=== PATIENT | male | born 1940 | race Caucasian/White ===

== ENCOUNTER 2017-08-17 22:10 | Observation (INO) | payer OTHER ==
[~2017-08-17] VITALS: Ht 180.3 cm; Wt 96.4 kg
[~2017-08-17 22:10] MED LIST: ASPI325 PO; ATOR10; FISH OIL 1,0001 EAC1 PO; GABA300; INS70/30I SC; INVOKANA300 MG PO; LISI5 PO; MULVITMIND PO; SOMA350 MG PO
[2017-08-17 22:50] LABS: BASOPHILS ABSOLUTE AUTO 0.01 K/mm3 (0.00-0.23); BASOPHILS PERCENT AUTO 0 % (0-2); EOSINOPHILS ABSOLUTE AUTO 0.03 K/mm3 (0.00-0.68); EOSINOPHILS PERCENT AUTO 0 % (0-6); Hematocrit 45.9 % (37.0-53.0); IMMATURE GRAN ABSOLUTE AUTO 0.04 K/mm3 (0.00-0.10); IMMATURE GRAN PERCENT AUTO 1 % (0-1); LYMPHOCYTES ABSOLUTE AUTO 1.12 K/mm3 (0.84-5.20); LYMPHOCYTES PERCENT AUTO 15 % (21-46); MONOCYTES ABSOLUTE AUTO 0.52 K/mm3 (0.16-1.47); MONOCYTES PERCENT AUTO 7 % (4-13); Mean Corpuscular HGB 29.9 pg (26.0-34.0); Mean Corpuscular HGB Conc 32.7 g/dL (31.5-36.5); Mean Corpuscular Volume 92 fL (80-100); Mean Platelet Volume 10.3 fL (9.1-12.4); NEUTROPHILS ABSOLUTE AUTO 5.83 K/mm3 (1.96-9.15); NEUTROPHILS PERCENT AUTO 77 % (41-73); Platelet Count 240 K/mm3 (150-400); RDW Coefficient Variation 13.4 % (11.7-14.2); RDW Standard Deviation 45.1 fL (35.1-46.3); Red Blood Cell Count 5.01 M/mm3 (4.30-5.90); White Blood Cell Count 7.55 K/mm3 (4.00-11.30)
[2017-08-17 23:08] LABS: Alanine Aminotransfer (ALT/SGP 24 U/L (12-78); Albumin, Blood 3.6 g/dL (3.4-5.0); Albumin/Globulin Ratio 0.9 (0.8-1.8); Alk Phos 90 U/L (50-136); Anion Gap 6 mmol/L (6-16); Aspartate Aminotrans (AST/SGOT 9 U/L (12-37); Bilirubin, Total 0.5 mg/dL (0.1-1.0); Blood Urea Nitrogen 15 mg/dL (8-24); Bun/Creatinine Ratio 15.9 (12.0-20.0); CO2, Blood 28 mmol/L (21-32); Calcium, Blood 8.3 mg/dL (8.5-10.1); Chloride, Blood 105 mmol/L (98-108); Creatinine, Blood 0.94 mg/dL (0.60-1.20); Globulin, Blood 4.2 g/dL (2.2-4.0); Glomerular Filtration Rate >60 (60-); Glucose, Blood 348 mg/dL (70-99); Potassium, Blood 4.1 mmol/L (3.5-5.5); Sodium, Blood 139 mmol/L (136-145); Total Protein, Blood 7.8 g/dL (6.4-8.2)
[2017-08-18] MEDS ORDERED: [UNRECOGNIZED DRUG - CODE] PO (09:37)
[2017-08-18 10:28] LABS: International Normalized Ratio 1.06
[2017-08-18 14:18] LABS: Source, Urine Voided
[2017-08-18 14:20] LABS: Bilirubin, Urine Neg (Neg); Blood, Urine 1+ (Neg); Glucose Qualitative, Urine 4+ (Neg); Ketones, Urine 3+ (Neg); Leukocyte Esterase, Urine Neg (Neg); Nitrite, Urine Neg (Neg); Protein, Urine 2+ (Neg); Specific Gravity, Urine 1.015 (1.003-1.022); Urobilinogen, Urine NORM (Normal)
[2017-08-18 14:31] LABS: Appearance, Urine Clear (Clear); Color, Urine Yellow (P-Yellow)
[2017-08-18 14:32] LABS: Bacteria Few /hpf; Squamous Epithelial Cells Few /hpf (Few); White Blood Cells, Urine 0-2 /hpf (0-5)
[2017-08-18] MEDS ORDERED: TOUJEO SOL300 UNIT/1 SC (18:19)
[2017-08-19 04:39] LABS: BASOPHILS ABSOLUTE AUTO 0.03 K/mm3 (0.00-0.23); BASOPHILS PERCENT AUTO 0 % (0-2); EOSINOPHILS ABSOLUTE AUTO 0.02 K/mm3 (0.00-0.68); EOSINOPHILS PERCENT AUTO 0 % (0-6); Hematocrit 46.1 % (37.0-53.0); Hemoglobin 15.4 g/dL (13.5-17.5); IMMATURE GRAN ABSOLUTE AUTO 0.03 K/mm3 (0.00-0.10); IMMATURE GRAN PERCENT AUTO 0 % (0-1); LYMPHOCYTES ABSOLUTE AUTO 1.44 K/mm3 (0.84-5.20); LYMPHOCYTES PERCENT AUTO 16 % (21-46); MONOCYTES ABSOLUTE AUTO 0.55 K/mm3 (0.16-1.47); MONOCYTES PERCENT AUTO 6 % (4-13); Mean Corpuscular HGB 30.1 pg (26.0-34.0); Mean Corpuscular HGB Conc 33.4 g/dL (31.5-36.5); Mean Corpuscular Volume 90 fL (80-100); Mean Platelet Volume 10.1 fL (9.1-12.4); NEUTROPHILS ABSOLUTE AUTO 6.88 K/mm3 (1.96-9.15); NEUTROPHILS PERCENT AUTO 77 % (41-73); Platelet Count 252 K/mm3 (150-400); RDW Coefficient Variation 13.4 % (11.7-14.2); Red Blood Cell Count 5.11 M/mm3 (4.30-5.90); White Blood Cell Count 8.95 K/mm3 (4.00-11.30)
[2017-08-19 04:59] LABS: Anion Gap 8 mmol/L (6-16); Blood Urea Nitrogen 18 mg/dL (8-24); Bun/Creatinine Ratio 26.9 (12.0-20.0); CO2, Blood 27 mmol/L (21-32); Calcium, Blood 8.2 mg/dL (8.5-10.1); Chloride, Blood 107 mmol/L (98-108); Creatinine, Blood 0.67 mg/dL (0.60-1.20); Glomerular Filtration Rate >60 (60-); Glucose, Blood 159 mg/dL (70-99); Potassium, Blood 3.3 mmol/L (3.5-5.5); Sodium, Blood 142 mmol/L (136-145)
[2017-08-21] MEDS ORDERED: ATOR40TA PO (13:54)
[2017-08-21] MEDS ORDERED: Omeprazole20 M1 PO (13:56)
[2017-08-21] MEDS ORDERED: CHLO25A PO (14:00)
[2017-08-21] MEDS ORDERED: SUCR1 PO (14:01)
== END 2017-08-21 14:35 | disposition home or self-care (01) ==
LOC: ER 22:10 → MEDS 22:11
PROVIDERS: Emergency Medicine; Family Medicine; Internal Medicine Gastroenterology
PROC: 0DJ08ZZ Inspection of Upper Intestinal Tract, Via Natural or Artificial Opening Endoscopic (ICD-10-PCS; principal; 2017-08-20 09:00)
PROC: 0DJD8ZZ Inspection of Lower Intestinal Tract, Via Natural or Artificial Opening Endoscopic (ICD-10-PCS; principal; 2017-08-20 09:00)
DX: K22.10 Ulcer of esophagus without bleeding (principal); K22.2 Esophageal obstruction; K57.30 Diverticulosis of large intestine without perforation or abscess without bleeding; K64.8 Other hemorrhoids; K44.9 Diaphragmatic hernia without obstruction or gangrene; E11.9 Type 2 diabetes mellitus without complications; I10 Essential (primary) hypertension; M54.9 Dorsalgia, unspecified; G89.29 Other chronic pain; E78.5 Hyperlipidemia, unspecified; M51.36 Other intervertebral disc degeneration, lumbar region; K21.9 Gastro-esophageal reflux disease without esophagitis; H26.9 Unspecified cataract; E87.6 Hypokalemia; Z79.4 Long term (current) use of insulin; Z79.82 Long term (current) use of aspirin; Z79.899 Other long term (current) drug therapy; Z90.49 Acquired absence of other specified parts of digestive tract; Z87.891 Personal history of nicotine dependence; Z90.89 Acquired absence of other organs; Z98.890 Other specified postprocedural states; Z98.52 Vasectomy status
CPT/HCPCS: 36415; 74177; 80048; 80053; 81001; 82378; 82947; 83690; 85025; 85610; 85730; 93005; 93010; 96365; 96375; 99285; C9113; G0378; J0360; J1170; J1610; J1815; J1885; J2405; J2550; J3230; J7042; J7120; Q9967

== ENCOUNTER → 2023-07-26 | Outpatient (CLI) | payer OTHER ==
[~2023-07-26] MED LIST changes: +ATOR40TA PO; +CHLO25A PO; +Omeprazole20 M1 PO; +SUCR1 PO; +TOUJEO SOL300 UNIT/1 SC; +[UNRECOGNIZED DRUG - CODE] PO
== END | disposition home or self-care (01) ==
LOC: LAB 15:18 → LAB SHORT 15:18
DX: L02.612 Cutaneous abscess of left foot (principal)
CPT/HCPCS: 87070; 87077; 87186; 87205

== ENCOUNTER 2023-09-12 16:26 | Inpatient (IN) | payer OTHER ==
[~2023-09-12] VITALS: Ht 177.8 cm; Wt 92.0 kg
[2023-09-12 18:32] LABS: BASOPHILS ABSOLUTE AUTO 0.03 K/mm3 (0.00-0.23); BASOPHILS PERCENT AUTO 0 % (0-2); EOSINOPHILS ABSOLUTE AUTO 0.02 K/mm3 (0.00-0.68); EOSINOPHILS PERCENT AUTO 0 % (0-6); Hematocrit 43.7 % (37.0-53.0); Hemoglobin 15.3 g/dL (13.5-17.5); IMMATURE GRAN ABSOLUTE AUTO 0.07 K/mm3 (0.00-0.10); IMMATURE GRAN PERCENT AUTO 1 % (0-1); LYMPHOCYTES ABSOLUTE AUTO 1.01 K/mm3 (0.84-5.20); LYMPHOCYTES PERCENT AUTO 11 % (21-46); MONOCYTES ABSOLUTE AUTO 0.53 K/mm3 (0.16-1.47); MONOCYTES PERCENT AUTO 6 % (4-13); Mean Corpuscular HGB 31.9 pg (26.0-34.0); Mean Corpuscular Volume 91 fL (80-100); NEUTROPHILS ABSOLUTE AUTO 7.18 K/mm3 (1.96-9.15); NEUTROPHILS PERCENT AUTO 81 % (41-73); Platelet Count 296 K/mm3 (150-400); RDW Standard Deviation 43.5 fL (35.1-46.3); White Blood Cell Count 8.84 K/mm3 (4.00-11.30)
[2023-09-12 18:38] LABS: Albumin/Globulin Ratio 0.7 (0.8-1.8); Bilirubin, Total 0.6 mg/dL (0.1-1.0); Bun/Creatinine Ratio 34.1 (12.0-20.0); Calcium, Blood 8.4 mg/dL (8.5-10.1); Creatinine, Blood 0.91 mg/dL (0.60-1.20); Globulin, Blood 4.2 g/dL (2.2-4.0); Total Protein, Blood 7.2 g/dL (6.4-8.2)
[2023-09-12] MEDS ORDERED: NS IV ONE (18:55)
[2023-09-12] MEDS ORDERED: CHLORPROMAZINE HCL IV ONE (18:55)
[2023-09-12] MEDS ORDERED: Ondansetron HCl 2 MG / ML 2ML Vial IV ONE (18:55)
[2023-09-12] MEDS ORDERED: Pantoprazole Sodium 40 MG Injection IV ONE (19:00)
[2023-09-12] MEDS ORDERED: ONDA4ODT MM (19:12)
[2023-09-12] MEDS ORDERED: Cipro500 MG PO (19:12)
[2023-09-12] MEDS ORDERED: TOUJEO MAX300 UNIT/2 SC (19:13)
[2023-09-12] MEDS ORDERED: JARDIANCE25 MG PO ×2 (19:13→21:31)
[2023-09-12] MEDS ORDERED: DRAMAMINE25 M3 PO (19:13)
[2023-09-12] MEDS ORDERED: LISI20 PO (19:14)
[2023-09-12 19:19] LABS: International Normalized Ratio 1.09; Prothrombin Time Results 11.4 Sec (9.7-11.5)
[2023-09-12] MEDS ORDERED: NS 1,000 ML IV ONE (20:00)
[2023-09-12] MEDS ORDERED: Metoclopramide HCl 5MG / ML 2ML Vial IV PRN (20:00)
[2023-09-12] MEDS ORDERED: Insulin Glargine-Yfgn 100 Unit/mL 3 ML SYR SC SCH (21:00)
[2023-09-12] MEDS ORDERED: NS 1,000 ML IV SCH (21:00)
[2023-09-12] MEDS ORDERED: Ciprofloxacin 500 MG Tab PO SCH (21:00)
[2023-09-12 21:22] VITALS: BP 145/71
[2023-09-12] MEDS ORDERED: ASPI325 PO (21:32)
[2023-09-12 23:54] LABS: Hemoglobin 13.6 g/dL (13.5-17.5)
[2023-09-13] VITALS (9 sets, daily range): BP systolic 105–176; BP diastolic 62–130
[2023-09-13] MEDS ORDERED: Labetalol HCL 5 MG/ML 4ML Injection (Single Dose) IV ONE (04:55)
[2023-09-13] MEDS ORDERED: Labetalol HCL 5 MG/ML 4ML Injection (Single Dose) ONE (04:58)
[2023-09-13 05:31] LABS: Hemoglobin 13.8 g/dL (13.5-17.5)
[2023-09-13 06:09] LABS: Bun/Creatinine Ratio 26.4 (12.0-20.0); Creatinine, Blood 0.87 mg/dL (0.60-1.20); Potassium, Blood 3.2 mmol/L (3.5-5.5)
[2023-09-13] MEDS ORDERED: Metoprolol Tartrate 1 MG/ML 5 ML VIAL IV ONE (06:25)
[2023-09-13] MEDS ORDERED: Dextrose 50% 50 ML Syringe IV ONE (06:30)
[2023-09-13] MEDS ORDERED: Metoprolol Tartrate 1 MG/ML 5 ML VIAL IV PRN (07:50)
--- NOTE | 2023-09-13 07:50 | NUR ---
NEW ADMIT/[employer] SUMMARY PT ADMIT FOR GI BLEED. PT IS A/OX4 WITH FORGETFULNESS; PT POOR HISTORIAN RELATED TO HEALTH HX. PT ON CLEAR LIQUID FOR EGD CONSULT. PHYSICIAN NOTIFIED. 2ND RN SKIN CHECK COMPLETE; EPITHELIALIZED DIABETIC ULCER TO LEFT BIG TOE; SMALL BLISTER TO RIGHT PINKY TOE. CONSENT SIGNED AND PICS IN THE CHART. PT HX OF HIGH BLOOD PRESSURE. PT REPORTS HE STOPPED TAKING BP MEDS BUT COULD NOT RECALL WHY. PT ORIENTED TO ROOM AND CALL LIGHT. PT REPORTING DIZINESS DUE TO VERTIGO. EDUCATED PT ON FALL RISK AND NEED FOR SBA. BED ALARM IN PLACE. PT HAVING EPISODED OF SINUS TACH IN THE 150'S WHE/N GETTING UP. THEN, HR /SUSTAINING IN 130'S. BLOOD PRESSURE ELEVATED; 208/179, 160/130. PHONE CALL TO ON [facility] DR SORIANO. NEW ORDER FOR 10MG IV LABETOLOL. NOTIFIED TECH OF IV PUSH MED; PUSHED MED OVER 2 MINTUES. HR DROPED TO 90-110; BLOOD PRESSURE CAME DOWN TO 144/62. WITHIN AN HOUR HR AND BLOOD PRESSURE BEGIN TO RISE. CALL TO SUPERVISOR [employer]--RCVD REPORT PT IN AFIB. OBTAINED EKG--ABNORMAL SHOWING PT IN AFIB WITH RVR. CONSULTED WITH DR SORIANO IN PERSON AND PROVIDED COPY OF THE EKG. ADVISED TO CONTINUE TO MONITOR, CALL AGAIN OF PT HR SUSTAINS OVER 110, AND ORDER ECHO. PT HR INCREASED AGAIN AND SUSTAINING OVER 110. PB BLOOD SUGAR WAS 65. CALLED DR AGAIN TO REPORT CONCERNS. NEW ORDER FOR 5MG LOPRESSOR AND ONE AMPULE OF D50. BOTH MEDS GIVEN JUST BEFORE SHIFT CHANGE. FULL BEDSIDE SHIFT REPORT GIVEN TO ONCOMING NURSE.
[2023-09-13] MEDS ORDERED: Potassium Chl 20MEQ/Water100ML 100 ML IV STA (07:53)
--- NOTE | 2023-09-13 08:11 | NUR ---
PHYSICIAN CONTACT/AFIB 120-130. PROPERTY MANAGEMENT BOOKKEEPER REPORTED TODAY THAT PT IS SUSTAINGING IN THE 120-130S AFIB SINCE 0700 TODAY. PT REPORTS THAT HE FEELS HYPOGLYCEMIC, BLOOD SUGAR CHECKED- 173. AM BP 109/68. THIS IS A DROP FROM OVERNIGHT. DR. PATRICK NOTIFIED OF ALL THIS. PRN IV LOPRESSOR ORDERED WITH PERAMETERS FOR BP SINCE PT IS SYMPTOMATIC AFTER WALKING TO THE BATHROOM AND BACK. DR. PATRICK TO DC LANTUS FOR NOW AND ONLY FOLLOW SLIDING SCALE.
[2023-09-13] MEDS ORDERED: Lisinopril 10 MG Tab PO SCH (09:00)
[2023-09-13] MEDS ORDERED: Lisinopril 20 MG Tab PO SCH (09:00)
[2023-09-13] MEDS ORDERED: Pantoprazole Sodium 40 MG Injection IV SCH (09:00)
--- NOTE | 2023-09-13 09:54 | NUR ---
PHYSICIAN CONTACT/ CONVERT TO AFLUTTER. TELLER SUPERVISOR CALLED TO REPORT THAT PATIENT HAD CONVERTED TO AFLUTTER AND IS SUSTAINING AT 135. DR. PATRICK NOTIFIED. IV LOPRESSOR GIVEN WITH DR. HR DID COME DOWN TO 90-120S PER TELLER SUPERVISOR. DR. PATRICK WANTING TO TRANSFER THE PATIENT TO PCU FOR FURTHER CONTROL OF HR. OR STAFF NOTIFIED OF EVENTS AND EGD LIKELY TO BE POSTPONED FOR NOW.
[2023-09-13] MEDS ORDERED: Metoprolol Tartrate 25 MG Tab PO SCH (11:00)
[2023-09-13 13:10] LABS: Source, Urine Clean Catch
[2023-09-13 13:22] LABS: Bilirubin, Urine Neg (Neg); Blood, Urine 3+ (Neg); Glucose Qualitative, Urine 2+ (Neg); Ketones, Urine 3+ (Neg); Leukocyte Esterase, Urine 3+ (Neg); Nitrite, Urine Neg (Neg); Protein, Urine 2+ (Neg); Urobilinogen, Urine NORM (Normal)
[2023-09-13 13:44] LABS: Albumin, Blood 2.7 g/dL (3.4-5.0); Anion Gap 9 mmol/L (3-11); Blood Urea Nitrogen 21 mg/dL (8-24); Bun/Creatinine Ratio 24.9 (12.0-20.0); CO2, Blood 28 mmol/L (21-32); Calcium, Blood 7.9 mg/dL (8.5-10.1); Chloride, Blood 105 mmol/L (98-108); Creatinine, Blood 0.84 mg/dL (0.60-1.20); Glomerular Filtration Rate 87 (60-); Glucose, Blood 126 mg/dL (70-99); Phosphorus, Blood 1.8 mg/dL (2.5-4.9); Potassium, Blood 3.7 mmol/L (3.5-5.5); Sodium, Blood 138 mmol/L (136-145)
--- NOTE | 2023-09-13 13:45 | NUR ---
transfer: PT TRANSFER TO PCU 19. A+O X4. DENIES PAIN OR NAUSEA AT THIS TIME. HYPO BT'S. LORENZO CLEAR LIQUIDS, ICE WATER GIVEN. URINAL AT BEDSIDE. TELE A FLUTTER 130'S. PT HAS CHRONIC HICCUPS AND VERTIGO. INSTRUCTED TO CALL TO GET OOB WITH ASSIST. HOB ELEVATED. NS INFUSING PER ORDERS, IV PATENT. CALL LIGHT PLACED IN REACH. WILL CONT TO MONITOR AND TREAT.
--- NOTE | 2023-09-13 13:58 | NUR ---
TRANSFER TO PCU PT TRANSFERED TO PCU. REPORT GIVEN TO DEEDEE VEGA RN.
[2023-09-13 14:11] LABS: Appearance, Urine Turbid (Clear); Color, Urine Yellow (P-Yellow)
[2023-09-13 14:12] LABS: White Blood Cells, Urine TNTC /hpf (0-5)
[2023-09-13 14:14] LABS: Bacteria Many /hpf; Squamous Epithelial Cells Not Seen /hpf (Few); Yeast/Fungi Urine Many /hpf
--- NOTE | 2023-09-13 17:58 | NUR ---
PT HAS BEEN STABLE SINCE TRANSFER. PT HR IN THE 140'S AROUND DINNER, PRN METOPROLOL GIVEN. ENDOSCOPY DELAYED. DR DAVALOS ADVANCED DIET AND WILL REATTEMPT WHEN HR CONTROL IS IMPROVED. PT HAS HAD NO NAUSEA. CHRONIC HICCUPS. PT HAD SMALL TARRY STOOL THIS AFTERNOON. DENIES PAIN. CONT IV FLUIDS ORDERED. VOIDING WELL. URINE PENDING. BLOOD SUGAR 97 AT DINNER. AT BEDSIDE. PT CALLS APPROPRIATELY NEEDED.
[2023-09-13] MEDS ORDERED: Insulin Human Lispro 100 Units/ML 3ML Syringe SC SCH ×2 (21:00)
[2023-09-14 04:01] VITALS: BP 132/68
--- NOTE | 2023-09-14 04:54 | NUR ---
SHIFT SUMMARY PT A&O X4. ABLE TO MAKE NEEDS KNOWN. BP STABLE. PT WAS IN AFIB/AFLUTTER FOR MOST OF THIS NOC SHIFT WITH HR 90-110'S. PT CONVERTED BACK TO SR AROUND 0339, HR CURRENTLY 80'S. PT DENIED CHEST PAIN/PRESSURE T/O THIS SHIFT. ON RA WITH SPO2 >92%. BP STABLE. AFEBRILE. PT WITH SOFT BM THAT WAS DARK BROWN IN COLOR. NO TARRY STOOLS. PT DENIES N/V AND ABDOMINAL PAIN. PT AMBULATING TO BATHROOM WITH SBA. NS INFUSING PER EMAR.
[2023-09-14 05:09] LABS: BASOPHILS ABSOLUTE AUTO 0.02 K/mm3 (0.00-0.23); BASOPHILS PERCENT AUTO 0 % (0-2); EOSINOPHILS ABSOLUTE AUTO 0.02 K/mm3 (0.00-0.68); EOSINOPHILS PERCENT AUTO 0 % (0-6); Hematocrit 38.7 % (37.0-53.0); Hemoglobin 13.1 g/dL (13.5-17.5); IMMATURE GRAN ABSOLUTE AUTO 0.09 K/mm3 (0.00-0.10); IMMATURE GRAN PERCENT AUTO 1 % (0-1); LYMPHOCYTES ABSOLUTE AUTO 1.24 K/mm3 (0.84-5.20); LYMPHOCYTES PERCENT AUTO 18 % (21-46); MONOCYTES ABSOLUTE AUTO 0.44 K/mm3 (0.16-1.47); MONOCYTES PERCENT AUTO 6 % (4-13); Mean Corpuscular HGB 31.4 pg (26.0-34.0); Mean Corpuscular HGB Conc 33.9 g/dL (31.5-36.5); Mean Corpuscular Volume 93 fL (80-100); Mean Platelet Volume 10.1 fL (9.1-12.4); NEUTROPHILS ABSOLUTE AUTO 5.06 K/mm3 (1.96-9.15); NEUTROPHILS PERCENT AUTO 74 % (41-73); Platelet Count 286 K/mm3 (150-400); RDW Standard Deviation 44.6 fL (35.1-46.3); Red Blood Cell Count 4.17 M/mm3 (4.30-5.90); White Blood Cell Count 6.87 K/mm3 (4.00-11.30)
[2023-09-14 05:32] LABS: Bun/Creatinine Ratio 20.3 (12.0-20.0); Calcium, Blood 7.7 mg/dL (8.5-10.1); Creatinine, Blood 0.89 mg/dL (0.60-1.20); Magnesium, Blood 2.4 mg/dL (1.6-2.4); Potassium, Blood 4.3 mmol/L (3.5-5.5)
[2023-09-14 07:59] VITALS: BP 157/78
[2023-09-14] MEDS ORDERED: Metoprolol Tartrate 25 MG Tab PO SCH (09:00)
--- NOTE | 2023-09-14 09:42 | NUR ---
Dr. Chaudhary rounded on patient, called Dr. Lind and notified me that the pt is to have water only then NPO at noon. Dr Lind called and clarified that pt is to be NPO at 11am. Pt only has had clear liquids since last night after eating dinner.
--- NOTE | 2023-09-14 09:56 | NUR ---
Ambulatory to the bathroom to void. Standby assistance only needed.
[2023-09-14] MEDS ORDERED: Lactated Ringer's 1,000 ML IV SCH (12:30)
--- NOTE | 2023-09-14 12:45 | NUR ---
INTO [facility]IA [employer]. HISTORY AND ALLERGIES REVIEWED. NPO STATUS SINCE 0800-CLEAR LIQUIDS. ECG SHOWS SR WITH RATE 80'S. LUNGS WITH FINE CRACKLES TO LEFT BASE. PT REPORTS SOB FROM "HICUPS" PT HAS HAD THE HICUPS X 1 WEEK. NO NOTED SOB AT REST. SATS>93% ON RA.
--- NOTE | 2023-09-14 12:45 | NUR ---
#20 PIV TO RIGHT FOREARM C/D/I-FLUSHES WELL.
[2023-09-14 12:49] VITALS: BP 152/86
--- NOTE | 2023-09-14 12:51 | NUR ---
Pt taken down for EGD.
[2023-09-14] MEDS ORDERED: propofoL 40 ML IV ONE (13:05)
--- NOTE | 2023-09-14 13:52 | NUR ---
09/14/23 1352 Jeane Romo History, Chart, Medications and Allergies reviewed before start of procedure.MONITOR INTACT WITH CONTINUOUS PULSE OXIMETRY, CONTINUOUS END TITAL CO2, AND INTERMITTENT BLOOD PRESSURE.3-LEAD EKG REVIEWED WITH PHYSICIAN PRIOR TO START OF PROCEDURE.O2 VIA N/C INTACT THROUGHOUT SEDATION/PROCEDURE.Bite Block Placed.Haydee Mendoza CRNA providing anesthesia-see anesthesia record.
[2023-09-14] MEDS ORDERED: CefTRIAXone Sodium 1,000 MG in NS 100 ML IV SCH (14:00)
--- NOTE | 2023-09-14 14:28 | NUR ---
Pt returned from EGD. Dr Lind here to see the patient, discussing results.
[2023-09-14 14:30] VITALS: BP 133/63
[2023-09-14] MEDS ORDERED: Pantoprazole Sodium 40 MG Tab PO SCH (16:30)
--- NOTE | 2023-09-14 17:50 | NUR ---
Alert, oriented and pleasantly conversant throughout the day. Ambulatory to the bathroom to void, also had brown loose stool, reported by PCT. IV fluids are infusing 100 cc/hour. Urine noted turbid. Also got IVPB Rocephin started today for UTI. Good appetite following EGD, ate well this evening, diabetic diet. He has had no complaints. Pt has remained in sinus rhythm throughout the shift. Vital signs stable.
[2023-09-14 20:10] VITALS: BP 167/73
[2023-09-14 23:25] VITALS: BP 150/73
[2023-09-14] MEDS ORDERED: Melatonin 5 MG Tablet PO PRN (23:30)
[2023-09-15 03:13] VITALS: BP 149/81
[2023-09-15 04:21] LABS: Hematocrit 40.9 % (37.0-53.0); Mean Corpuscular HGB 31.2 pg (26.0-34.0); Mean Corpuscular HGB Conc 34.2 g/dL (31.5-36.5); Mean Corpuscular Volume 91 fL (80-100); Mean Platelet Volume 9.9 fL (9.1-12.4); Platelet Count 323 K/mm3 (150-400); RDW Coefficient Variation 13.1 % (11.7-14.2); RDW Standard Deviation 43.8 fL (35.1-46.3); Red Blood Cell Count 4.49 M/mm3 (4.30-5.90); White Blood Cell Count 9.09 K/mm3 (4.00-11.30)
--- NOTE | 2023-09-15 05:24 | NUR ---
SHIFT SUMMARY NO ACUTE CHANGES OVERNIGHT. PT REPORTING HICCUPS TO BE BOTHERSOME FOR SLEEPING. PROVIDER WITH ORDER FOR MELATONIN. PT REMAINS IN SR. BP STABLE. ON RA WITH SPO2 >92%. NS INFUSING PER EMAR. PT AMBULATING TO BATHROOM WITH SBA. BED IN LOWEST POSITION AND CALL LIGHT WITHIN REACH. THIS RN WILL REPORT TO ONCOMING DAYSHIFT RN.
[2023-09-15 07:58] VITALS: BP 181/87
[2023-09-15 08:06] LABS: Source, Urine Clean Catch
[2023-09-15 08:14] LABS: Appearance, Urine Hazy (Clear); Bilirubin, Urine Neg (Neg); Blood, Urine 2+ (Neg); Color, Urine Yellow (P-Yellow); Glucose Qualitative, Urine 2+ (Neg); Ketones, Urine 2+ (Neg); Leukocyte Esterase, Urine 3+ (Neg); Nitrite, Urine Neg (Neg); Protein, Urine 2+ (Neg); Specific Gravity, Urine 1.015 (1.003-1.022); Urobilinogen, Urine NORM (Normal)
[2023-09-15 08:23] LABS: White Blood Cells, Urine 50-100 /hpf (0-5); Yeast/Fungi Urine Many /hpf
[2023-09-15 08:24] LABS: Red Blood Cells, Urine 0-2 /hpf (0-2)
[2023-09-15 08:25] LABS: Bacteria Mod /hpf; Squamous Epithelial Cells Not Seen /hpf (Few)
--- NOTE | 2023-09-15 08:34 | NUR ---
Dr. Chaudhary here rounding on the patient. Pt ambulatory earlier to the bathroom to void, urine sent for culture.
--- NOTE | 2023-09-15 08:58 | NUR ---
Cardiology consultation called in to heart center. Noted patient is positive on his I&O; IV fluids have been infusing at 100cc/hour. They were turned off at this time. Crackles noted in the lower bases of his lungs, posteriorly.
[2023-09-15] MEDS ORDERED: Metoprolol Succinate 50 MG TABCR PO SCH (09:00)
[2023-09-15] MEDS ORDERED: Empagliflozin 25 MG TAB PO SCH (09:00)
[2023-09-15] MEDS ORDERED: Sacubitril/Valsartan 24 MG-26 MG Tab PO SCH (09:00)
[2023-09-15 11:16] VITALS: BP 169/80
[2023-09-15 14:15] LABS: Bun/Creatinine Ratio 24.2 (12.0-20.0); Calcium, Blood 8.3 mg/dL (8.5-10.1); Creatinine, Blood 0.83 mg/dL (0.60-1.20); Potassium, Blood 4.4 mmol/L (3.5-5.5)
[2023-09-15 14:46] VITALS: BP 159/85
[2023-09-15] MEDS ORDERED: Torsemide 20 MG TAB PO SCH (15:00)
--- NOTE | 2023-09-15 15:44 | NUR ---
walked to bathroom to void. he was given a "brown cow" prune juice for constipation.
[2023-09-15 15:49] VITALS: BP 152/80
[2023-09-15] MEDS ORDERED: ASPI81CH PO (17:42)
[2023-09-15] MEDS ORDERED: METO50ER PO (17:43)
[2023-09-15] MEDS ORDERED: PANT40 PO (17:44)
[2023-09-15] MEDS ORDERED: POTA10T PO (17:45)
[2023-09-15] MEDS ORDERED: SOAANZ20 M1 PO (17:45)
[2023-09-15] MEDS ORDERED: ENTRESTO 24 MG1 EACH PO (17:45)
[2023-09-15] MEDS ORDERED: LEVFLO500 PO (17:46)
[2023-09-15] MEDS ORDERED: HUMALOG KW100 UNIT/1 SC (17:48)
--- NOTE | 2023-09-15 18:29 | NUR ---
Discharge instructions reviewed with the patient and his . He was given medication list, which was reviewed in detail with both of them. Pt taken out in wheelchair to private vehicle driven by his ,
== END 2023-09-15 18:19 | disposition home or self-care (01) | DRG 381 ==
LOC: ER 16:26 → PCU 19:56 → MEDS 19:56 → PCU 09-13 13:32
PROVIDERS: Internal Medicine; Internal Medicine Gastroenterology; Nurse Practitioner Acute Care; Physician Assistant; Student in an Organized Health Care Education/Training Program; ADMIT Internal Medicine
PROC: 0DB68ZX Excision of Stomach, Via Natural or Artificial Opening Endoscopic, Diagnostic (ICD-10-PCS; principal; 2023-09-14 09:00)
DX: K22.11 Ulcer of esophagus with bleeding (principal); E87.1 Hypo-osmolality and hyponatremia; N39.0 Urinary tract infection, site not specified; I48.92 Unspecified atrial flutter; I50.22 Chronic systolic (congestive) heart failure; K21.01 Gastro-esophageal reflux disease with esophagitis, with bleeding; K25.4 Chronic or unspecified gastric ulcer with hemorrhage; K26.4 Chronic or unspecified duodenal ulcer with hemorrhage; E11.9 Type 2 diabetes mellitus without complications; E78.5 Hyperlipidemia, unspecified; I11.0 Hypertensive heart disease with heart failure; K44.9 Diaphragmatic hernia without obstruction or gangrene; K64.8 Other hemorrhoids; E66.3 Overweight; M19.90 Unspecified osteoarthritis, unspecified site; M54.9 Dorsalgia, unspecified; G89.29 Other chronic pain; Z98.52 Vasectomy status; Z90.49 Acquired absence of other specified parts of digestive tract; Z98.890 Other specified postprocedural states; Z87.891 Personal history of nicotine dependence; F10.90 Alcohol use, unspecified, uncomplicated; Z88.8 Allergy status to other drugs, medicaments and biological substances; Z79.82 Long term (current) use of aspirin; Z79.4 Long term (current) use of insulin; Z79.899 Other long term (current) drug therapy; Z79.811 Long term (current) use of aromatase inhibitors; Z87.19 Personal history of other diseases of the digestive system; Z68.28 Body mass index [BMI] 28.0-28.9, adult
CPT/HCPCS: 36415; 80048; 80053; 80069; 81001; 82947; 83690; 83735; 85014; 85018; 85025; 85027; 85610; 85730; 86850; 86900; 86901; 88305; 96361; 96374; 96375; 99285-25; A9270; C8929; C9113; J0696; J1815; J2405; J2704; J3230; J3480; J7030; J7120; Q9957

== ENCOUNTER 2023-11-20 23:26 | Inpatient (IN) | payer OTHER ==
[~2023-11-20] VITALS: Ht 177.8 cm; Wt 93.6 kg
[~2023-11-20 23:26] MED LIST changes: +ASPI81CH PO; +Cipro500 MG PO; +DRAMAMINE25 M3 PO; +ENTRESTO 24 MG1 EACH PO; +HUMALOG KW100 UNIT/1 SC; +JARDIANCE10 MG PO; +JARDIANCE25 MG PO; +LEVFLO500 PO; +LISI20 PO; +METO50ER PO; +ONDA4ODT MM; +PANT40 PO; +POTA10T PO; +SOAANZ20 M1 PO; +TOUJEO MAX300 UNIT/2 SC
[2023-11-20 23:51] LABS: BASOPHILS ABSOLUTE AUTO 0.03 K/mm3 (0.00-0.23); BASOPHILS PERCENT AUTO 1 % (0-2); EOSINOPHILS ABSOLUTE AUTO 0.11 K/mm3 (0.00-0.68); EOSINOPHILS PERCENT AUTO 2 % (0-6); Hematocrit 46.1 % (37.0-53.0); IMMATURE GRAN ABSOLUTE AUTO 0.02 K/mm3 (0.00-0.10); IMMATURE GRAN PERCENT AUTO 0 % (0-1); LYMPHOCYTES ABSOLUTE AUTO 1.09 K/mm3 (0.84-5.20); LYMPHOCYTES PERCENT AUTO 19 % (21-46); MONOCYTES ABSOLUTE AUTO 0.27 K/mm3 (0.16-1.47); MONOCYTES PERCENT AUTO 5 % (4-13); Mean Corpuscular HGB 31.4 pg (26.0-34.0); Mean Corpuscular HGB Conc 32.5 g/dL (31.5-36.5); Mean Corpuscular Volume 96 fL (80-100); Mean Platelet Volume 10.2 fL (9.1-12.4); NEUTROPHILS ABSOLUTE AUTO 4.33 K/mm3 (1.96-9.15); NEUTROPHILS PERCENT AUTO 74 % (41-73); Platelet Count 220 K/mm3 (150-400); RDW Coefficient Variation 14.2 % (11.7-14.2); RDW Standard Deviation 50.4 fL (35.1-46.3); Red Blood Cell Count 4.78 M/mm3 (4.30-5.90); White Blood Cell Count 5.85 K/mm3 (4.00-11.30)
[2023-11-21] VITALS (18 sets, daily range): BP systolic 99–155; BP diastolic 58–105
[2023-11-21 00:14] LABS: Albumin, Blood 3.6 g/dL (3.4-5.0); Albumin/Globulin Ratio 0.9 (0.8-1.8); Bilirubin, Total 0.4 mg/dL (0.1-1.0); Bun/Creatinine Ratio 21.2 (12.0-20.0); Creatinine, Blood 0.99 mg/dL (0.60-1.20); Globulin, Blood 4.2 g/dL (2.2-4.0); Magnesium, Blood 2.1 mg/dL (1.6-2.4); Potassium, Blood 5.1 mmol/L (3.5-5.5); Total Protein, Blood 7.8 g/dL (6.4-8.2)
[2023-11-21] MEDS ORDERED: Ipratropium/Albuterol SulF 2.5-0.5MG/3 ML Amp INH ONE (00:15)
[2023-11-21] MEDS ORDERED: Aspirin 325 MG Tab PO ONE (00:40)
[2023-11-21] MEDS ORDERED: Insulin Regular 100 Unit/ML 1ML Dose IV ONE (00:45)
[2023-11-21] MEDS ORDERED: Furosemide 10 MG/ML 10ML Vial IV ONE (00:45)
[2023-11-21] MEDS ORDERED: Acetaminophen 325 MG TABLET PO PRN (02:10)
--- NOTE | 2023-11-21 03:42 | NUR ---
EOS/ASSUMPTION: PATIENT ALERT AND ORIENTED X 4, POOR HISTORIAN, WHICH HAS BEEN A LARGE ISSURE, MEDICATION RECONCILLIATION IS INCOMPLETE DUE TO THIS. PATIETN HIMSELF IS UNSURE OF WHAT HE IS TAKING. DENIES CHEST PAIN PRESSURE OR INCREASING SOB. NOTHING INFUSING. GLASSES. NEUROPATHY. SKIN INTACT, DRY. SPO2 98% ON 3.5NC, ELEVATED BLOOD PRESSURE IMPROVED WITH REST. DIURESING WELL, NO MAJOR CONCERNS. WILL CONTINUE TO MONITOR.
[2023-11-21 03:48] LABS: BASOPHILS ABSOLUTE AUTO 0.03 K/mm3 (0.00-0.23); BASOPHILS PERCENT AUTO 0 % (0-2); EOSINOPHILS ABSOLUTE AUTO 0.01 K/mm3 (0.00-0.68); EOSINOPHILS PERCENT AUTO 0 % (0-6); Hemoglobin 15.4 g/dL (13.5-17.5); IMMATURE GRAN ABSOLUTE AUTO 0.03 K/mm3 (0.00-0.10); IMMATURE GRAN PERCENT AUTO 0 % (0-1); LYMPHOCYTES PERCENT AUTO 13 % (21-46); MONOCYTES ABSOLUTE AUTO 0.32 K/mm3 (0.16-1.47); MONOCYTES PERCENT AUTO 5 % (4-13); Mean Corpuscular HGB 31.7 pg (26.0-34.0); Mean Corpuscular HGB Conc 32.8 g/dL (31.5-36.5); Mean Corpuscular Volume 97 fL (80-100); Mean Platelet Volume 10.5 fL (9.1-12.4); NEUTROPHILS ABSOLUTE AUTO 5.44 K/mm3 (1.96-9.15); NEUTROPHILS PERCENT AUTO 81 % (41-73); Platelet Count 237 K/mm3 (150-400); RDW Coefficient Variation 14.3 % (11.7-14.2); RDW Standard Deviation 50.4 fL (35.1-46.3); Red Blood Cell Count 4.86 M/mm3 (4.30-5.90); White Blood Cell Count 6.73 K/mm3 (4.00-11.30)
[2023-11-21 04:22] LABS: Albumin, Blood 3.9 g/dL (3.4-5.0); Albumin/Globulin Ratio 0.9 (0.8-1.8); Bilirubin, Total 0.4 mg/dL (0.1-1.0); Bun/Creatinine Ratio 20.2 (12.0-20.0); Calcium, Blood 9.3 mg/dL (8.5-10.1); Creatinine, Blood 1.09 mg/dL (0.60-1.20); Globulin, Blood 4.2 g/dL (2.2-4.0); Magnesium, Blood 2.2 mg/dL (1.6-2.4); Potassium, Blood 4.9 mmol/L (3.5-5.5); Total Protein, Blood 8.1 g/dL (6.4-8.2)
[2023-11-21] MEDS ORDERED: Nitroglycerin 0.4 MG SUBL SL PRN (04:35)
[2023-11-21 05:24] LABS: Anti-Xa UFH, PHA Monitoring <0.10 IU/mL; International Normalized Ratio 0.95; Prothrombin Time Results 10.2 Sec (9.7-11.5)
[2023-11-21] MEDS ORDERED: Heparin Sodium,Porcine/0.5 NS 500 ML IV SCH (05:45)
[2023-11-21] MEDS ORDERED: Pantoprazole Sodium 40 MG Tab PO SCH (06:00)
[2023-11-21] MEDS ORDERED: Insulin Regular 100 UNIT/ML 10ML Vial SC SCH (06:00)
[2023-11-21] MEDS ORDERED: Metoprolol Succinate 50 MG TABCR PO SCH ×2 (06:00→09:00)
--- NOTE | 2023-11-21 06:17 | NUR ---
UPDATE: WITH INCREASING TROP. DR. CLAROS INITITATED HEP CONSULT, STARTED METOPROLOL XL NOW, Q6 HUMULIN, Q6 CHECKS, NO CARDIOLOGY CONSULT SEEN AT THIS TIME. PATIENT IS NPO
[2023-11-21] MEDS ORDERED: Insulin Human Lispro 100 Units/ML 3ML Syringe SC SCH (07:30)
[2023-11-21] MEDS ORDERED: Furosemide 10 MG/ML 4ML Vial IV SCH (09:00)
[2023-11-21] MEDS ORDERED: Potassium Chloride 20 MEQ TabCR PO SCH (09:00)
[2023-11-21] MEDS ORDERED: Aspirin 81 MG Chew PO SCH (09:00)
[2023-11-21] MEDS ORDERED: Atorvastatin 40 MG Tab PO SCH ×2 (09:00→21:00)
[2023-11-21] MEDS ORDERED: Sacubitril/Valsartan 24 MG-26 MG Tab PO SCH (09:00)
[2023-11-21] MEDS ORDERED: Empagliflozin 25 MG TAB PO SCH (09:00)
[2023-11-21] MEDS ORDERED: Insulin Glargine-Yfgn 100 Unit/mL 3 ML SYR SC SCH ×2 (09:00)
[2023-11-21] MEDS ORDERED: Enoxaparin 40 MG/0.4 ML SYR SC SCH (09:00)
[2023-11-21 09:38] LABS: Hematocrit 44.3 % (37.0-53.0); Hemoglobin 14.9 g/dL (13.5-17.5)
[2023-11-21] MEDS ORDERED: DRAMAMINE25 M1 PO (09:40)
[2023-11-21] MEDS ORDERED: Dose Adjust by Pharmacy XX STA (12:27)
[2023-11-21 15:39] LABS: Hemoglobin 14.3 g/dL (13.5-17.5)
[2023-11-21] MEDS ORDERED: FentaNYL Citrate 50 MCG/ML 2 ML Injection ONE (16:48)
[2023-11-21] MEDS ORDERED: NS 1,000 ML IV ONE ×2 (16:48→16:49)
[2023-11-21] MEDS ORDERED: Midazolam HCl 1MG / ML 2ML Vial ONE (16:48)
[2023-11-21] MEDS ORDERED: NS 250 ML IV ONE (16:49)
[2023-11-21] MEDS ORDERED: Heparin Sodium 1000 Units/ML 10ML MDV ONE (16:49)
[2023-11-21] MEDS ORDERED: NiCARdipine HCL 1,000 MCG/5 ML SYR ONE (16:50)
[2023-11-21] MEDS ORDERED: Nitroglycerin 2 MG/20 ML BTL ONE (16:50)
--- NOTE | 2023-11-21 18:55 | NUR ---
SHIFT SUMMARY: PT HAS BEEN A&Ox4, COOPERATIVE W/CARE, ABLE TO MAKE NEEDS KNOWN. PT HAS DENIED SOB AND CP T/OUT THE DAY. O2 SATS MAINTAINED >93% ON RA. SIN TACH THIS AM, THEN CONVERTED TO AFIB W/RATE 80s-120s, THEN TO [employer] AND IN SR 80s UPON RETURN. CARDIOLOGY CONSULTATION COMPLETED AT BEDSIDE, PT TO/FROM [employer] W/NO INTERVENTION AND PLAN TO COBRA TRANSFER. PT W/R RADIAL ACCESS SITE, NO HEMATOMA, SITE SOFT AND NONTENDER, TR BAND FULLY INFLATED AT 12 CC AIR. PT HAS BEEN CONTINENT, SBA FOR URINAL USE. FR OF 1800 DAILY, PT W/NO PO INTAKE THIS SHIFT D/TO NPO STATUS. PT's SPOUSE UPDATED ON PLAN FOR TRANSFER. REPORT HAS BEEN GIVEN TO [facility].
--- NOTE | 2023-11-21 20:38 | NUR ---
ASSUMPTION OF CARE NOTE A/Ox4 AND COOPERATIVE WITH CARE. ABLE TO MAKE HIS NEEDS KNOWN. CARDIAC, TELEMETRY ENDORSES SR 80'S. NO REPORTS OF CP, PRESSURE OR DIZZINESS. SBP STABLE RANGING 110'S AND MAP REMAINING >65. TR BAND IN PLACE ON RIGHT WRIST, INFLATED WITH 12CC OF AIR PER REPORT. NO BLEEDING, TENDERNESS, OR HEMATOMA NOTED. HAND WARM TO THE TOUCH, DENIES N/T AT THIS TIME. ARMBOARD IN PLACE. HEPARIN gtt INFUSING IN RAC IV PER EMAR. NO S/S OF BLEEDING NOTED OR REPORTED. RESPIRATORY, MAINTAINS SPO2 >90% ON RA WITH NO REPORTS OF SOB OR DYSPNEA. RR EVEN AND UNLABORED. GI/, DENIES ABD TENDERNESS N/V/D AT THIS TIME. BS PRESENT IN ALL QUADRANTS. PT RELAXING IN BED AND DENIES ANY NEEDS AT THIS TIME. VSS, OMER OF THIS NOTE.
--- NOTE | 2023-11-21 21:19 | NUR ---
UPDATE CALLED PT'S SPOUSE (ANJALI) WITH UPDATE AND COBRA TRANSFER PER PT'S REQUEST. ALL QUESTIONS ANSWERED. OMER TEIXEIRA OF THIS NOTE
--- NOTE | 2023-11-21 22:55 | NUR ---
TRANSPORT NOTE NO ACUTE CHANGES SINCE ASSUMPTION OF CARE NOTE. SEE NOTE FOR DETAILS. RIGHT RADIAL ACCESS SITE FROM [facility] ON 11/20 FULLY RECOVERED AT 2235. SITE CLEANED WITH CHLORHEXIDINE AND TEGADERM PLACED. NO BLEEDING, HEMATOMA, OR TENDERNESS NOTED. RADIAL PULSE PRESENT. DENIES HAND N/R, HAND WARM TO THE TOUCH. PT LEFT WITH [facility] AT ~2252. REPORT GIVEN TO PROVIDER NETWORK MGR MALU, ALL QUESTIONS ANSWERED. HEPARIN gtt INFUSING ORDERED PER EMAR. VSS, NADN UPON LEAVING PCU.
--- NOTE | 2023-11-21 23:13 | NUR ---
UPDATE CALLED REPORT TO [facility] RN SANDRA AT [phone]. ALL QUESTIONS ANSWERED.
[2023-11-22] MEDS ORDERED: Atorvastatin 40 MG Tab PO SCH (21:00)
== END 2023-11-21 23:04 | disposition short-term general hospital (02) | DRG 280 ==
LOC: ER 23:26 → PCU 11-21 02:07
PROVIDERS: Student in an Organized Health Care Education/Training Program; ADMIT Student in an Organized Health Care Education/Training Program
PROC: B2111ZZ Fluoroscopy of Multiple Coronary Arteries using Low Osmolar Contrast (ICD-10-PCS; principal; 2023-11-21)
DX: I21.4 Non-ST elevation (NSTEMI) myocardial infarction (principal); I50.23 Acute on chronic systolic (congestive) heart failure; J96.01 Acute respiratory failure with hypoxia; I48.92 Unspecified atrial flutter; Z66 Do not resuscitate; E11.9 Type 2 diabetes mellitus without complications; G89.29 Other chronic pain; M54.9 Dorsalgia, unspecified; I11.0 Hypertensive heart disease with heart failure; I25.10 Atherosclerotic heart disease of native coronary artery without angina pectoris; E78.5 Hyperlipidemia, unspecified; Z79.4 Long term (current) use of insulin; Z79.82 Long term (current) use of aspirin; Z90.49 Acquired absence of other specified parts of digestive tract; Z87.891 Personal history of nicotine dependence; I25.2 Old myocardial infarction; Z91.048 Other nonmedicinal substance allergy status; Z87.19 Personal history of other diseases of the digestive system
CPT/HCPCS: 36415; 71045; 76937; 80053; 82947; 83735; 83880; 84145; 84484; 85014; 85018; 85025; 85520; 85610; 85730; 93005; 93010; 93454; 93880; 94640; 94664; 94762; 96374; 99152; 99285-25; A9270; C1769; C1894; C8929; J1644; J1815; J1940; J2250; J3010; J7030; J7050; Q9957; Q9967

== ENCOUNTER 2024-08-28 20:34 | Observation (INO) | payer OTHER ==
[~2024-08-28] VITALS: Ht 180.3 cm; Wt 96.0 kg
[~2024-08-28 20:34] MED LIST changes: +DRAMAMINE25 M1 PO
[2024-08-28 21:11] LABS: BASOPHILS ABSOLUTE AUTO 0.01 K/mm3 (0.00-0.23); BASOPHILS PERCENT AUTO 0 % (0-2); EOSINOPHILS ABSOLUTE AUTO 0.12 K/mm3 (0.00-0.68); EOSINOPHILS PERCENT AUTO 4 % (0-6); Hematocrit 40.7 % (37.0-53.0); Hemoglobin 13.7 g/dL (13.5-17.5); IMMATURE GRAN ABSOLUTE AUTO 0.01 K/mm3 (0.00-0.10); IMMATURE GRAN PERCENT AUTO 0 % (0-1); LYMPHOCYTES ABSOLUTE AUTO 1.18 K/mm3 (0.84-5.20); LYMPHOCYTES PERCENT AUTO 35 % (21-46); MONOCYTES ABSOLUTE AUTO 0.24 K/mm3 (0.16-1.47); MONOCYTES PERCENT AUTO 7 % (4-13); Mean Corpuscular HGB 31.9 pg (26.0-34.0); Mean Corpuscular HGB Conc 33.7 g/dL (31.5-36.5); Mean Corpuscular Volume 95 fL (80-100); Mean Platelet Volume 9.8 fL (9.1-12.4); NEUTROPHILS PERCENT AUTO 54 % (41-73); Platelet Count 162 K/mm3 (150-400); RDW Coefficient Variation 14.4 % (11.7-14.2); RDW Standard Deviation 50.4 fL (35.1-46.3); Red Blood Cell Count 4.29 M/mm3 (4.30-5.90); White Blood Cell Count 3.36 K/mm3 (4.00-11.30)
[2024-08-28 21:31] LABS: Albumin, Blood 3.8 g/dL (3.4-5.0); Albumin/Globulin Ratio 1.2 (0.8-1.8); Bilirubin, Total 0.4 mg/dL (0.1-1.0); Bun/Creatinine Ratio 18.3 (12.0-20.0); Calcium, Blood 8.4 mg/dL (8.5-10.1); Creatinine, Blood 1.26 mg/dL (0.60-1.20); Globulin, Blood 3.1 g/dL (2.2-4.0); Potassium, Blood 4.2 mmol/L (3.5-5.5); Total Protein, Blood 6.9 g/dL (6.4-8.2)
[2024-08-29 02:18] VITALS: BP 142/65
[2024-08-29] MEDS ORDERED: JARDIANCE25 MG PO (02:18)
[2024-08-29] MEDS ORDERED: ATOR40TA PO (02:19)
[2024-08-29] MEDS ORDERED: ISOSORBIDE MONO30 MG PO (02:21)
[2024-08-29] MEDS ORDERED: PANT40 PO (02:22)
[2024-08-29] MEDS ORDERED: CLOP75 PO (02:23)
[2024-08-29] MEDS ORDERED: NITROGLYCERIN0.4 M3 SL (02:25)
[2024-08-29] MEDS ORDERED: Dose Adjust by Pharmacy XX STA (02:25)
[2024-08-29] MEDS ORDERED: SPIRONOLACTONE25 MG PO (02:26)
[2024-08-29] MEDS ORDERED: ELIQUIS5 M2 PO (02:26)
[2024-08-29] MEDS ORDERED: CARVEDILOL12.5 MG PO (02:27)
[2024-08-29 02:28] LABS: Anti-Xa UFH, PHA Monitoring 0.96 IU/mL; International Normalized Ratio 1.09; Prothrombin Time Results 11.6 Sec (9.7-11.5)
[2024-08-29] MEDS ORDERED: Heparin Sodium,Porcine/0.5 NS 500 ML IV SCH (02:30)
[2024-08-29 04:56] LABS: BASOPHILS ABSOLUTE AUTO 0.02 K/mm3 (0.00-0.23); BASOPHILS PERCENT AUTO 1 % (0-2); EOSINOPHILS ABSOLUTE AUTO 0.12 K/mm3 (0.00-0.68); EOSINOPHILS PERCENT AUTO 3 % (0-6); Hematocrit 40.4 % (37.0-53.0); Hemoglobin 13.3 g/dL (13.5-17.5); IMMATURE GRAN ABSOLUTE AUTO 0.02 K/mm3 (0.00-0.10); IMMATURE GRAN PERCENT AUTO 1 % (0-1); LYMPHOCYTES ABSOLUTE AUTO 1.39 K/mm3 (0.84-5.20); LYMPHOCYTES PERCENT AUTO 37 % (21-46); MONOCYTES ABSOLUTE AUTO 0.29 K/mm3 (0.16-1.47); MONOCYTES PERCENT AUTO 8 % (4-13); Mean Corpuscular HGB 31.4 pg (26.0-34.0); Mean Corpuscular HGB Conc 32.9 g/dL (31.5-36.5); Mean Corpuscular Volume 95 fL (80-100); Mean Platelet Volume 10.1 fL (9.1-12.4); NEUTROPHILS ABSOLUTE AUTO 1.89 K/mm3 (1.96-9.15); NEUTROPHILS PERCENT AUTO 51 % (41-73); Platelet Count 152 K/mm3 (150-400); RDW Coefficient Variation 14.3 % (11.7-14.2); RDW Standard Deviation 49.7 fL (35.1-46.3); Red Blood Cell Count 4.24 M/mm3 (4.30-5.90); White Blood Cell Count 3.73 K/mm3 (4.00-11.30)
[2024-08-29 05:31] LABS: Albumin, Blood 3.3 g/dL (3.4-5.0); Albumin/Globulin Ratio 1.1 (0.8-1.8); Bilirubin, Total 0.5 mg/dL (0.1-1.0); Bun/Creatinine Ratio 21.2 (12.0-20.0); Calcium, Blood 8.2 mg/dL (8.5-10.1); Creatinine, Blood 1.04 mg/dL (0.60-1.20); Globulin, Blood 2.9 g/dL (2.2-4.0); Potassium, Blood 3.6 mmol/L (3.5-5.5); Total Protein, Blood 6.2 g/dL (6.4-8.2)
--- NOTE | 2024-08-29 05:53 | NUR ---
PT A&O X4, VS WNL, PT ADMITTED FROM ED THIS SHIFT WITH CHEST PAIN. PT DOES NOT HAVE PAIN CURRENTLY. TELE IS NSR IN 70'S. PO INTAKE WNL. UP WITH SBA D/T VERTIGO. PT VOIDED WHIN UP TO FLOOR. PT WITH IV HEPARIN DRIP AT 24.6ML/HR. PT ON RA, AND TROPONIN LEVEL THIS AM WAS SLIGHTLY ELEVATED FROM LAST DRAW. PT MED REC COMPLETED, BUT WILL NEED TO CHECK WITH THIS AM ON A FEW DOSES. WILL CONTINUE TO MONITOR.
[2024-08-29] MEDS ORDERED: Pantoprazole Sodium 40 MG Tab PO SCH (07:30)
[2024-08-29 07:49] VITALS: BP 162/77
[2024-08-29] MEDS ORDERED: Empagliflozin 10 MG TAB PO SCH (09:00)
[2024-08-29] MEDS ORDERED: Meclizine HCl 25 MG Tab PO SCH (09:00)
[2024-08-29] MEDS ORDERED: Insulin Glargine-Yfgn 100 Unit/mL 3 ML SYR SC SCH (09:00)
[2024-08-29] MEDS ORDERED: Metoprolol Succinate 50 MG TABCR PO SCH ×2 (09:00)
[2024-08-29] MEDS ORDERED: Clarify Drug Order XX ONE (09:55)
[2024-08-29] MEDS ORDERED: ENTRESTO 49 MG1 EAC7 PO (10:52)
[2024-08-29] MEDS ORDERED: METO50ER PO (11:40)
--- NOTE | 2024-08-29 12:22 | NUR ---
DISCHRAGE NOTE EDUCATED PATIENT ON DISCHARGE PACKET AND PROVIDER INSTRUCTIONS. IV REMOVED BY CUSTODIAN. TELE DC'D. ESCORTED DOWN VIA WHEELCHAIR AND DAUGHTER PICKED UP. NO NEW QUESTIONS OR CONCERNS PRIOR TO DC
== END 2024-08-29 12:10 | disposition home or self-care (01) ==
LOC: ER 20:34 → MEDS 20:35
PROVIDERS: Registered Nurse; Student in an Organized Health Care Education/Training Program; ADMIT Internal Medicine
DX: R07.89 Other chest pain (principal); I25.10 Atherosclerotic heart disease of native coronary artery without angina pectoris; I25.2 Old myocardial infarction; I11.0 Hypertensive heart disease with heart failure; I50.22 Chronic systolic (congestive) heart failure; E11.9 Type 2 diabetes mellitus without complications; Z66 Do not resuscitate; Z87.891 Personal history of nicotine dependence; Z79.4 Long term (current) use of insulin; Z79.82 Long term (current) use of aspirin; Z79.84 Long term (current) use of oral hypoglycemic drugs; Z79.899 Other long term (current) drug therapy; Z88.8 Allergy status to other drugs, medicaments and biological substances; Z90.49 Acquired absence of other specified parts of digestive tract
CPT/HCPCS: 36415; 71045; 80053; 82947; 84484; 85025; 85520; 85610; 85730; 93005; 93010; 96374; 99285-25; A9270; G0378; J1644; J1815